=== PATIENT | female | born 1970 | race Caucasian/White ===

== ENCOUNTER 2018-08-09 16:52 | Inpatient (IN) | payer MEDICAID ==
[~2018-08-09] VITALS: Ht 167.6 cm; Wt 90.7 kg
[2018-08-09] MEDS ORDERED: ALBUTEROL (0.083%) 2.5MG/3ML NEB HHN STA (19:50)
[2018-08-09] MEDS ORDERED: SODIUM CHLORIDE 0.9% 1,000 ML IV ONE ×2 (19:50→20:39)
[2018-08-09 20:17] LABS: BASOPHILS % 0.2 % (0.0-2.0); HEMATOCRIT. 25.9 % (36.0-48.0); HEMOGLOBIN. 8.6 g/dL (12.0-16.0); MEAN CORPUSCULAR HEMOGLOBIN 29.9 pg (28.0-32.0); MEAN CORPUSCULAR VOLUME 90.5 fL (81.0-99.0); MEAN PLATELET VOLUME 10.1 fl (7.4-10.4); MONOCYTES % 5.4 % (2.0-8.0); NEUTROPHILS % 82.4 % (40.0-76.0); PLATELET 192 x1000/uL (130-400); RED BLOOD CELL COUNT 2.87 mill/uL (4.2-5.4); RED CELL DISTRIBUTION WIDTH 14.1 % (11.6-14.6)
[2018-08-09 20:24] LABS: CHLORIDE 107 mEq/L (98-107); CLARITY URINE CLOUDY (CLEAR); COLOR URINE YELLOW (YELLOW); KETONES URINE NEGATIVE (NEGATIVE); LEUKOCYTE ESTERASE URINE NEGATIVE (NEGATIVE); NITRITE URINE NEGATIVE (NEGATIVE); OCCULT BLOOD URINE 2+ (NEGATIVE); PH URINE 5.5 (4.5-8.0); PROTEIN URINE 4+ (NEGATIVE); SPECIFIC GRAVITY URINE 1.023 (1.005-1.030); UROBILINOGEN URINE 0.2 E.U./dL (0.2-1.0)
[2018-08-09] MEDS ORDERED: ACETAMINOPHEN 325MG TABLET PO ONE (20:30)
[2018-08-09 20:54] LABS: HCG SCREEN NEGATIVE
[2018-08-09] MEDS ORDERED: CEFTRIAXONE 2 G PREMIX 50 ML IV ONE (21:00)
[2018-08-09] MEDS ORDERED: AZITHROMYCIN 500 MG in DEXT 5% WATER 250 ML IV ONE (21:00)
[2018-08-09] MEDS ORDERED: OSELTAMIVIR 75MG CAPSULE PO ONE (21:00)
[2018-08-09 21:56] LABS: PROTHROMBIN TIME 9.9 sec (9.1-11.1)
[2018-08-09] MEDS ORDERED: SODIUM CHLORIDE 0.9% 1,000 ML IV SCH (23:07)
[2018-08-09] MEDS ORDERED: ACETAMINOPHEN 325MG TABLET PO PRN (23:15)
[2018-08-09] MEDS ORDERED: DOCUSATE SODIUM 100MG CAPSULE PO PRN (23:15)
[2018-08-09] MEDS ORDERED: ONDANSETRON HCL 4MG/2ML INJ IV PRN (23:15)
[2018-08-09] MEDS ORDERED: CLONIDINE 0.1MG TABLET PO PRN (23:15)
[2018-08-09] MEDS ORDERED: IPRATROPIUM/ALBUTEROL 0.5-3(2.5)MG/3ML NEB INH PRN (23:15)
[2018-08-09] MEDS ORDERED: HYDROCODONE/ACETAMINOPHEN 5/325MG TABLET PO PRN (23:15)
[2018-08-10 06:50] LABS: BASOPHILS % 0.3 % (0.0-2.0); HEMATOCRIT. 23.1 % (36.0-48.0); HEMOGLOBIN. 7.9 g/dL (12.0-16.0); LYMPHOCYTES % 19.9 % (20.0-50.0); MEAN CORPUSCULAR HEMOGLOBIN 30.8 pg (28.0-32.0); MEAN CORPUSCULAR VOLUME 89.9 fL (81.0-99.0); MEAN PLATELET VOLUME 10.7 fl (7.4-10.4); MONOCYTES % 5.7 % (2.0-8.0); NEUTROPHILS % 74.1 % (40.0-76.0); PLATELET 171 x1000/uL (130-400); RED BLOOD CELL COUNT 2.57 mill/uL (4.2-5.4); RED CELL DISTRIBUTION WIDTH 14.1 % (11.6-14.6)
[2018-08-10 07:06] LABS: CREATINE KINASE MB FRACTION 4.3 ng/mL (0.5-3.6)
[2018-08-10] MEDS ORDERED: OSELTAMIVIR 75MG CAPSULE PO SCH (09:00)
[2018-08-10 09:15] VITALS: BP 146/74
[2018-08-10 09:18] LABS: BG BASE EXCESS -7.2 mmol/L (-2.0-2.0); BG CARBOXYHEMOGLOBIN 0.1 % (0.5-1.5); BG DEOXYHEMOGLOBIN 5.9 % (0.0-5.0); BG FRACTION INSPIRED OXYGEN 21; BG HCO3 ACT 17.3 mmol/L (22.0-26.0); BG METHEMOGLOBIN 0.3 % (0.0-1.5); BG OXYGEN SATURATION 94.1 % (92.0-98.5); BG OXYHEMOGLOBIN 93.7 % (94.0-97.0); BG PCO2 30.8 mmHg (35.0-45.0); BG PH 7.367 (7.350-7.450); BG PO2 73.6 mmHg (75.0-100.0); BG SAMPLE SITE RIGHT BRACHIAL; BG TOTAL HEMOGLOBIN 7.8 g/dL (12.0-18.0); BG VENT MODE ROOM AIR
[2018-08-10 09:30] VITALS: BP 146/74
[2018-08-10] MEDS ORDERED: SODIUM POLYSTYRENE SULFONATE 15 G/60 ML BOT PO NR (11:00)
[2018-08-10 12:00] VITALS: BP 147/72
[2018-08-10] MEDS: OSELTAMIVIR 30MG CAPSULE PO SCH (12:19)
[2018-08-10] MEDS: AZITHROMYCIN 500 MG TABLET PO SCH (12:19)
[2018-08-10] MEDS: SODIUM CHLORIDE 0.45% 1,000 ML IV SCH ×3 (12:36→21:29)
[2018-08-10] MEDS: HYDRALAZINE HCL 10MG TABLET PO SCH ×2 (14:35→21:24)
[2018-08-10] MEDS: AMLODIPINE 5MG TABLET PO SCH ×2 (14:36→21:24)
[2018-08-10 15:44] LABS: CREATINE KINASE MB FRACTION 5.6 ng/mL (0.5-3.6)
[2018-08-10 16:00] VITALS: BP 172/82
[2018-08-10] MEDS ORDERED: THROAT LOZENGES-BENZOCAINE/MENTH/CETYLPYRD CL LOZENGES MM PRN (18:30)
[2018-08-10 20:00] VITALS: BP 161/78
[2018-08-10] MEDS: GUAIFENESIN 600MG ER TABLET PO SCH (21:23)
[2018-08-10] MEDS: CEFTRIAXONE 1 G PREMIX 50 ML IV SCH (21:28)
[2018-08-10] MEDS ORDERED: CEFTRIAXONE 1 G PREMIX 50 ML IV SCH (22:00)
[2018-08-11] VITALS: BP 148/64
[2018-08-11 04:00] VITALS: BP 153/68
[2018-08-11] MEDS: SODIUM CHLORIDE 0.45% 1,000 ML IV SCH ×2 (05:10→18:41)
[2018-08-11] MEDS: HYDRALAZINE HCL 10MG TABLET PO SCH (05:10)
[2018-08-11 08:00] VITALS: BP 138/65
[2018-08-11 09:06] LABS: ANTI-NUCLEAR ANTIBODIES DIRECT Negative (Negative)
[2018-08-11] MEDS: AMLODIPINE 5MG TABLET PO SCH ×2 (09:08→21:16)
[2018-08-11] MEDS: GUAIFENESIN 600MG ER TABLET PO SCH ×2 (09:08→21:16)
[2018-08-11] MEDS: AZITHROMYCIN 500 MG TABLET PO SCH (09:08)
[2018-08-11 09:46] LABS: HEMATOCRIT. 21.6 % (36.0-48.0); HEMOGLOBIN. 7.2 g/dL (12.0-16.0); MEAN CORPUSCULAR HEMOGLOBIN 30.3 pg (28.0-32.0); MEAN CORPUSCULAR VOLUME 90.6 fL (81.0-99.0); MEAN PLATELET VOLUME 9.9 fl (7.4-10.4); PLATELET 169 x1000/uL (130-400); RED BLOOD CELL COUNT 2.39 mill/uL (4.2-5.4); RED CELL DISTRIBUTION WIDTH 13.9 % (11.6-14.6)
[2018-08-11] MEDS ORDERED: DEXTROSE 50% WATER 50ML SYRINGE IV PRN (11:30)
[2018-08-11 12:00] VITALS: BP 146/76
[2018-08-11] MEDS: INSULIN LISPRO 100 UNITS/ML SUBCUT SCH ×3 (12:15→21:35)
[2018-08-11] MEDS: BLOOD SUGAR DIAGNOSTIC STRIP TEST SCH ×3 (12:32→21:16)
[2018-08-11] MEDS: OSELTAMIVIR 30MG CAPSULE PO SCH (12:49)
[2018-08-11] MEDS: HYDRALAZINE HCL 25MG TABLET PO SCH ×2 (14:31→21:16)
[2018-08-11 15:09] LABS: PLATELET ESTIMATE NORMAL
[2018-08-11 16:00] VITALS: BP 148/74
[2018-08-11 17:06] LABS: A/G RATIO 0.7 (0.7-1.7); ALBUMIN 2.1 g/dL (2.9-4.4); ALPHA-1-GLOBULIN 0.4 g/dL (0.0-0.4); ALPHA-2-GLOBULIN 0.9 g/dL (0.4-1.0); BETA GLOBULIN 0.7 g/dL (0.7-1.3); GAMMA GLOBULINS 1.2 g/dL (0.4-1.8); GLOBULIN TOTAL 3.2 g/dL (2.2-3.9); M-SPIKE Not Observed g/dL (Not Observed); TOTAL PROTEIN SERUM 5.3 g/dL (6.0-8.5)
[2018-08-11] MEDS: CITRIC ACID/SODIUM CITRATE SOLN 30ML UDC PO SCH (18:39)
[2018-08-11 20:00] VITALS: BP 161/84
[2018-08-11] MEDS: CEFTRIAXONE 1 G PREMIX 50 ML IV SCH (21:16)
[2018-08-12] VITALS: BP 159/70
[2018-08-12 04:00] VITALS: BP 138/57
[2018-08-12 05:29] LABS: COMPLEMENT C3 97 mg/dL (82-167)
[2018-08-12] MEDS: BLOOD SUGAR DIAGNOSTIC STRIP TEST SCH ×4 (06:26→20:03)
[2018-08-12] MEDS: SODIUM CHLORIDE 0.45% 1,000 ML IV SCH ×2 (06:26→16:17)
[2018-08-12] MEDS: HYDRALAZINE HCL 25MG TABLET PO SCH ×3 (06:26→21:01)
[2018-08-12] MEDS: PANTOPRAZOLE 40MG DR TABLET PO SCH (06:26)
[2018-08-12] MEDS: INSULIN LISPRO 100 UNITS/ML SUBCUT SCH ×4 (06:54→21:03)
[2018-08-12 07:24] LABS: BASOPHILS % 0.4 % (0.0-2.0); EOSINOPHILS % 0.5 % (0.0-5.0); HEMOGLOBIN. 8.1 g/dL (12.0-16.0); MEAN CORPUSCULAR HEMOGLOBIN 31.4 pg (28.0-32.0); MEAN CORPUSCULAR VOLUME 88.8 fL (81.0-99.0); MEAN PLATELET VOLUME 10.2 fl (7.4-10.4); MONOCYTES % 6.2 % (2.0-8.0); NEUTROPHILS % 61.9 % (40.0-76.0); PLATELET 211 x1000/uL (130-400); RED BLOOD CELL COUNT 2.59 mill/uL (4.2-5.4); RED CELL DISTRIBUTION WIDTH 13.5 % (11.6-14.6)
[2018-08-12 08:00] VITALS: BP 163/77
[2018-08-12] MEDS: AZITHROMYCIN 500 MG TABLET PO SCH (08:38)
[2018-08-12] MEDS: AMLODIPINE 5MG TABLET PO SCH ×2 (08:38→21:01)
[2018-08-12] MEDS: OSELTAMIVIR 30MG CAPSULE PO SCH (08:38)
[2018-08-12] MEDS: CITRIC ACID/SODIUM CITRATE SOLN 30ML UDC PO SCH ×3 (08:38→16:18)
[2018-08-12] MEDS: GUAIFENESIN 600MG ER TABLET PO SCH ×2 (08:38→21:01)
[2018-08-12 08:52] LABS: VITAMIN B12 SERUM > 2000.0 pg/mL (211-911)
[2018-08-12 12:00] VITALS: BP 144/72
[2018-08-12 15:24] LABS: CREATININE URINE (RAW) 86.2 mg/dl
[2018-08-12 16:00] VITALS: BP 139/67
[2018-08-12] MEDS ORDERED: LORAZEPAM 0.5MG TABLET PO PRN (17:45)
[2018-08-12 20:00] VITALS: BP 157/64
[2018-08-12] MEDS: CEFTRIAXONE 1 G PREMIX 50 ML IV SCH (21:00)
[2018-08-13] VITALS: BP 144/76
[2018-08-13 04:00] VITALS: BP 143/64
[2018-08-13] MEDS: BLOOD SUGAR DIAGNOSTIC STRIP TEST SCH ×2 (05:58→11:45)
[2018-08-13] MEDS: PANTOPRAZOLE 40MG DR TABLET PO SCH (06:02)
[2018-08-13] MEDS: HYDRALAZINE HCL 25MG TABLET PO SCH (06:02)
[2018-08-13] MEDS: INSULIN LISPRO 100 UNITS/ML SUBCUT SCH (06:02)
[2018-08-13 07:02] LABS: BASOPHILS % 0.4 % (0.0-2.0); EOSINOPHILS % 1.7 % (0.0-5.0); HEMATOCRIT. 22.6 % (36.0-48.0); HEMOGLOBIN. 7.7 g/dL (12.0-16.0); LYMPHOCYTES % 38.3 % (20.0-50.0); MEAN CORPUSCULAR HEMOGLOBIN 30.1 pg (28.0-32.0); MEAN CORPUSCULAR VOLUME 88.5 fL (81.0-99.0); MONOCYTES % 6.9 % (2.0-8.0); NEUTROPHILS % 52.7 % (40.0-76.0); PLATELET 250 x1000/uL (130-400); RED BLOOD CELL COUNT 2.56 mill/uL (4.2-5.4); RED CELL DISTRIBUTION WIDTH 13.3 % (11.6-14.6)
[2018-08-13 07:36] LABS: HEPATITIS B SURFACE ANTIGEN NEGATIVE
[2018-08-13 08:00] VITALS: BP 148/76
[2018-08-13] MEDS: CITRIC ACID/SODIUM CITRATE SOLN 30ML UDC PO SCH (08:32)
[2018-08-13] MEDS: AZITHROMYCIN 500 MG TABLET PO SCH (09:29)
[2018-08-13] MEDS: OSELTAMIVIR 30MG CAPSULE PO SCH (09:29)
[2018-08-13] MEDS: GUAIFENESIN 600MG ER TABLET PO SCH (09:29)
[2018-08-13] MEDS: AMLODIPINE 5MG TABLET PO SCH (09:41)
[2018-08-13 11:52] VITALS: BP 148/76
[2018-08-15 13:06] LABS: HIV SCREEN 4G Non Reactive (Non Reactive)
[2018-08-15 15:10] LABS: ANTI-MYELOPEROXIDASE AB < 9.0 U/mL (0.0-9.0); ANTI-PROTEINASE 3 ABS < 3.5 U/mL (0.0-3.5)
[2018-08-22 15:10] LABS: ATYPICAL P-ANCA <1:20 titer (Neg:<1:20); CYTOPLASMIC C-ANCA <1:20 titer (Neg:<1:20); PERINUCLEAR P-ANCA <1:20 titer (Neg:<1:20)
== END 2018-08-13 12:20 | disposition home or self-care (01) | DRG 469 ==
LOC: ER 16:52 → 5WST 21:24 → ENRESERV 08-10 07:33 → 5WST 08-10 09:40
PROVIDERS: ADMIT Internal Medicine; ATTEND Internal Medicine
DX: N17.9 Acute kidney failure, unspecified (principal); J96.00 Acute respiratory failure, unspecified whether with hypoxia or hypercapnia; J10.00 Influenza due to other identified influenza virus with unspecified type of pneumonia; I11.0 Hypertensive heart disease with heart failure; R65.10 Systemic inflammatory response syndrome (SIRS) of non-infectious origin without acute organ dysfunction; Z93.0 Tracheostomy status; I50.32 Chronic diastolic (congestive) heart failure; E87.5 Hyperkalemia; D50.9 Iron deficiency anemia, unspecified; E10.9 Type 1 diabetes mellitus without complications; N39.0 Urinary tract infection, site not specified; E86.9 Volume depletion, unspecified; E78.00 Pure hypercholesterolemia, unspecified; K04.7 Periapical abscess without sinus; E78.5 Hyperlipidemia, unspecified; F17.210 Nicotine dependence, cigarettes, uncomplicated; H54.7 Unspecified visual loss; J44.0 Chronic obstructive pulmonary disease with (acute) lower respiratory infection; K80.20 Calculus of gallbladder without cholecystitis without obstruction; Z79.4 Long term (current) use of insulin; Z82.49 Family history of ischemic heart disease and other diseases of the circulatory system; Z83.3 Family history of diabetes mellitus; Z91.14 Patient's other noncompliance with medication regimen; Z91.15 Patient's noncompliance with renal dialysis
CPT/HCPCS: 36415; 36600; 71045; 76770; 80048; 80061; 82270; 82375; 82550; 82553; 82570; 82575; 82607; 82728; 82746; 82805; 82962; 83036; 83520; 83540; 83550; 83605; 83735; 83880; 84132; 84145; 84155; 84156; 84165; 84443; 84484; 84703; 85044; 86038; 86160; 86256; 86803; 86850; 86900; 87070; 87340; 87389; 87804; 93005; 93306; 93970; 94640; 96361; 96365; 96366; 96368; 99291; J0456; J0696; J1815; J7030; J7060; J7611

== ENCOUNTER 2018-10-12 18:41 | Inpatient (IN) | payer MEDICAID ==
[~2018-10-12] VITALS: Ht 160 cm; Wt 98.4 kg
[2018-10-12 23:41] LABS: BASOPHILS % 1.2 % (0.0-2.0); EOSINOPHILS % 2.2 % (0.0-5.0); HEMATOCRIT. 22.9 % (36.0-48.0); HEMOGLOBIN. 7.5 g/dL (12.0-16.0); LYMPHOCYTES % 31.4 % (20.0-50.0); MEAN CORPUSCULAR VOLUME 91.1 fL (81.0-99.0); MEAN PLATELET VOLUME 10.4 fl (7.4-10.4); MONOCYTES % 7.5 % (2.0-8.0); NEUTROPHILS % 57.7 % (40.0-76.0); PLATELET 254 x1000/uL (130-400); RED BLOOD CELL COUNT 2.51 mill/uL (4.2-5.4); RED CELL DISTRIBUTION WIDTH 14.6 % (11.6-14.6)
[2018-10-12 23:45] LABS: CHLORIDE 111 mEq/L (98-107)
[2018-10-12 23:47] LABS: PROTHROMBIN TIME 10.2 sec (9.1-11.1)
[2018-10-12] MEDS ORDERED: FUROSEMIDE 100MG/10ML VIAL IV NR (23:57)
[2018-10-13] MEDS ORDERED: CALCIUM CHLORIDE 1GM/10ML SYR IV NR
[2018-10-13] MEDS ORDERED: DEXTROSE 50% WATER 50ML SYRINGE IV NR
[2018-10-13] MEDS ORDERED: INSULIN REGULAR (HUMULIN R) 300UNITS/3ML IV NR
[2018-10-13] MEDS ORDERED: SODIUM BICARBONATE 8.4% 1 MEQ/ML 50ML SYR IV NR
[2018-10-13 00:11] LABS: CLARITY URINE CLOUDY (CLEAR); COLOR URINE YELLOW (YELLOW); KETONES URINE NEGATIVE (NEGATIVE); LEUKOCYTE ESTERASE URINE NEGATIVE (NEGATIVE); NITRITE URINE NEGATIVE (NEGATIVE); OCCULT BLOOD URINE 2+ (NEGATIVE); PH URINE 5.5 (4.5-8.0); PROTEIN URINE 4+ (NEGATIVE); SPECIFIC GRAVITY URINE 1.022 (1.005-1.030); UROBILINOGEN URINE 0.2 E.U./dL (0.2-1.0)
[2018-10-13] MEDS ORDERED: HYDRALAZINE 20MG/ML VIAL IV ONE (12:15)
[2018-10-13 14:47] VITALS: BP 155/71
[2018-10-13] MEDS ORDERED: INFLUENZA VIRUS VACCINE(AFLURIA) 0.5ML SYR IM ONE (16:00)
[2018-10-13] MEDS ORDERED: ONDANSETRON HCL 4MG/2ML INJ IV PRN (16:15)
[2018-10-13] MEDS ORDERED: PNEUMOCOCCAL 23-VAL P-SAC VAC 0.5 ML IM ONE (17:00)
[2018-10-13] MEDS ORDERED: ACETAMINOPHEN 325MG TABLET PO PRN (18:45)
[2018-10-13] MEDS ORDERED: IPRATROPIUM/ALBUTEROL 0.5-3(2.5)MG/3ML NEB INH PRN (18:45)
[2018-10-13 20:00] VITALS: BP 162/74
[2018-10-13] MEDS ORDERED: CLONIDINE 0.1MG TABLET PO PRN (20:45)
[2018-10-13] MEDS: AMLODIPINE 5MG TABLET PO SCH (21:08)
[2018-10-14] VITALS: BP 159/73
[2018-10-14 04:00] VITALS: BP 155/74
[2018-10-14] MEDS ORDERED: DEXTROSE 50% WATER 50ML SYRINGE IV PRN (05:15)
[2018-10-14] MEDS: BLOOD SUGAR DIAGNOSTIC STRIP TEST SCH ×3 (07:40→21:23)
[2018-10-14] MEDS: INSULIN LISPRO 100 UNITS/ML SUBCUT SCH ×3 (07:53→21:00)
[2018-10-14 08:00] VITALS: BP 126/58
[2018-10-14 08:02] LABS: BASOPHILS % 1.1 % (0.0-2.0); EOSINOPHILS % 2.5 % (0.0-5.0); HEMATOCRIT. 22.4 % (36.0-48.0); HEMOGLOBIN. 7.3 g/dL (12.0-16.0); LYMPHOCYTES % 34.6 % (20.0-50.0); MEAN CORPUSCULAR HEMOGLOBIN 29.7 pg (28.0-32.0); MEAN CORPUSCULAR VOLUME 91.5 fL (81.0-99.0); MEAN PLATELET VOLUME 10.2 fl (7.4-10.4); MONOCYTES % 8.8 % (2.0-8.0); PLATELET 266 x1000/uL (130-400); RED BLOOD CELL COUNT 2.45 mill/uL (4.2-5.4); RED CELL DISTRIBUTION WIDTH 14.4 % (11.6-14.6)
[2018-10-14] MEDS: AMLODIPINE 5MG TABLET PO SCH ×2 (09:13→21:22)
[2018-10-14 12:00] VITALS: BP 128/61
[2018-10-14] MEDS ORDERED: SODIUM BICARBONATE 8.4% 1 MEQ/ML 50ML SYR IV ONE (12:30)
[2018-10-14] MEDS ORDERED: SODIUM POLYSTYRENE SULFONATE 15 G/60 ML BOT PO ONE (12:30)
[2018-10-14] MEDS ORDERED: INSULIN REGULAR (HUMULIN R) 300UNITS/3ML IV ONE (12:30)
[2018-10-14] MEDS ORDERED: DEXTROSE 50% WATER 50ML SYRINGE IV ONE (12:30)
[2018-10-14] MEDS ORDERED: CALCIUM CHLORIDE 1,000 MG in DEXT 5% WATER 90 ML IV SCH (12:30)
[2018-10-14] MEDS ORDERED: INSULIN REGULAR (HUMULIN R) UD 100 UNITS/ML SYR IV SCH (12:45)
[2018-10-14 15:07] LABS: PHOSPHORUS 8.1 mg/dL (2.5-4.9)
[2018-10-14 16:08] VITALS: BP 135/67
[2018-10-14 20:00] VITALS: BP 141/54
[2018-10-15] VITALS: BP 142/67
[2018-10-15 04:00] VITALS: BP 128/74
[2018-10-15 06:41] LABS: PHOSPHORUS 7.9 mg/dL (2.5-4.9)
[2018-10-15 07:34] LABS: BASOPHILS % 0.4 % (0.0-2.0); EOSINOPHILS % 2.7 % (0.0-5.0); LYMPHOCYTES % 30.2 % (20.0-50.0); MEAN CORPUSCULAR HEMOGLOBIN 29.7 pg (28.0-32.0); MEAN CORPUSCULAR VOLUME 89.6 fL (81.0-99.0); MEAN PLATELET VOLUME 10.2 fl (7.4-10.4); MONOCYTES % 8.1 % (2.0-8.0); NEUTROPHILS % 58.6 % (40.0-76.0); PLATELET 263 x1000/uL (130-400); RED BLOOD CELL COUNT 2.31 mill/uL (4.2-5.4); RED CELL DISTRIBUTION WIDTH 14.7 % (11.6-14.6)
[2018-10-15] MEDS: BLOOD SUGAR DIAGNOSTIC STRIP TEST SCH ×4 (07:40→21:11)
[2018-10-15 08:00] VITALS: BP 130/66
[2018-10-15 08:06] LABS: HEMATOCRIT. 20.7 % (36.0-48.0); HEMOGLOBIN. 6.8 g/dL (12.0-16.0)
[2018-10-15] MEDS: INSULIN LISPRO 100 UNITS/ML SUBCUT SCH ×4 (08:10→21:00)
[2018-10-15] MEDS: AMLODIPINE 5MG TABLET PO SCH ×2 (08:27→21:11)
[2018-10-15] MEDS ORDERED: SODIUM POLYSTYRENE SULFONATE 15 G/60 ML BOT PO SCH (10:00)
[2018-10-15] MEDS: CITRIC ACID/SODIUM CITRATE SOLN 30ML UDC PO SCH ×3 (10:48→18:01)
[2018-10-15 12:00] VITALS: BP 131/66
[2018-10-15 16:00] VITALS: BP 147/62
[2018-10-15 20:00] VITALS: BP 146/66
[2018-10-15] MEDS ORDERED: EPOETIN ALFA 10000UNITS/ML VIAL SUBCUT SCH (21:00)
[2018-10-16] VITALS (8 sets, daily range): BP systolic 114–143; BP diastolic 41–81
[2018-10-16] MEDS: BLOOD SUGAR DIAGNOSTIC STRIP TEST SCH ×4 (06:47→21:18)
[2018-10-16] MEDS: INSULIN LISPRO 100 UNITS/ML SUBCUT SCH ×4 (08:10→21:00)
[2018-10-16] MEDS: AMLODIPINE 5MG TABLET PO SCH ×2 (08:29→21:27)
[2018-10-16] MEDS: CITRIC ACID/SODIUM CITRATE SOLN 30ML UDC PO SCH ×3 (08:29→17:24)
[2018-10-16 10:29] LABS: BASOPHILS % 0.8 % (0.0-2.0); EOSINOPHILS % 1.8 % (0.0-5.0); LYMPHOCYTES % 36.8 % (20.0-50.0); MEAN CORPUSCULAR HEMOGLOBIN 30.4 pg (28.0-32.0); MEAN CORPUSCULAR VOLUME 89.9 fL (81.0-99.0); MEAN PLATELET VOLUME 9.9 fl (7.4-10.4); MONOCYTES % 9.5 % (2.0-8.0); NEUTROPHILS % 51.1 % (40.0-76.0); PLATELET 254 x1000/uL (130-400); RED BLOOD CELL COUNT 2.21 mill/uL (4.2-5.4); RED CELL DISTRIBUTION WIDTH 14.2 % (11.6-14.6)
[2018-10-16 10:49] LABS: HEMATOCRIT. 19.9 % (36.0-48.0); HEMOGLOBIN. 6.7 g/dL (12.0-16.0)
[2018-10-16 12:23] LABS: HEPATITIS B SURFACE ANTIGEN NEGATIVE
[2018-10-16 12:52] LABS: HEPATITIS A AB IGM NEGATIVE (NEGATIVE)
[2018-10-16] MEDS: ONDANSETRON HCL 4MG/2ML INJ IV PRN ×2 (18:55→23:33)
[2018-10-16 20:57] LABS: HEMATOCRIT 22.2 % (36.0-48.0); HEMOGLOBIN 7.6 g/dL (12.0-16.0); MEAN CORPUSCULAR HEMOGLOBIN 30.1 pg (28.0-32.0); MEAN CORPUSCULAR VOLUME 88.2 fL (81.0-99.0); PLATELET 258 x1000/uL (130-400); RED BLOOD CELL COUNT 2.52 mill/uL (4.2-5.4); RED CELL DISTRIBUTION WIDTH 14.3 % (11.6-14.6)
[2018-10-17] VITALS (18 sets, daily range): BP systolic 121–163; BP diastolic 57–84
[2018-10-17 05:52] LABS: BASOPHILS % 1.1 % (0.0-2.0); EOSINOPHILS % 2.4 % (0.0-5.0); HEMATOCRIT. 22.5 % (36.0-48.0); HEMOGLOBIN. 7.5 g/dL (12.0-16.0); MEAN CORPUSCULAR HEMOGLOBIN 30.1 pg (28.0-32.0); MEAN CORPUSCULAR VOLUME 90.3 fL (81.0-99.0); NEUTROPHILS % 45.5 % (40.0-76.0); PLATELET 265 x1000/uL (130-400); RED CELL DISTRIBUTION WIDTH 14.7 % (11.6-14.6)
[2018-10-17 05:57] LABS: PARTIAL THROMBOPLASTIN TIME 28.3 sec (23.4-31.0); PROTHROMBIN TIME 10.3 sec (9.1-11.1)
[2018-10-17] MEDS: BLOOD SUGAR DIAGNOSTIC STRIP TEST SCH ×4 (07:23→21:18)
[2018-10-17] MEDS: INSULIN LISPRO 100 UNITS/ML SUBCUT SCH ×4 (07:46→21:27)
[2018-10-17] MEDS: AMLODIPINE 5MG TABLET PO SCH ×2 (09:00→21:26)
[2018-10-17] MEDS ORDERED: CEFAZOLIN 1000MG PREMIX 50 ML IV PRN (09:00)
[2018-10-17] MEDS: CITRIC ACID/SODIUM CITRATE SOLN 30ML UDC PO SCH ×3 (09:00→16:57)
[2018-10-17] MEDS ORDERED: LIDOCAINE HCL 1% 20ML VIAL (Pyxis) INJ ONE (09:14)
[2018-10-17] MEDS ORDERED: SODIUM BICARBONATE 4% (2.4MEQ) 5ML VIAL IV ONE (09:14)
[2018-10-17] MEDS ORDERED: HEPARIN 1000 UNITS/ML 10ML ONE (09:15)
[2018-10-17] MEDS ORDERED: CEFAZOLIN 1000MG PREMIX 50 ML IV ONE (09:17)
[2018-10-17] MEDS ORDERED: FENTANYL CITRATE/PF 50MCG/ML 2ML VIAL ONE (09:17)
[2018-10-17 09:31] LABS: HCG SCREEN NEGATIVE
[2018-10-17] MEDS ORDERED: FENTANYL CITRATE/PF 50MCG/ML 2ML VIAL IV ONE (11:00)
[2018-10-17] MEDS: HYDROCODONE/ACETAMINOPHEN 5/325MG TABLET PO PRN ×2 (12:44→21:30)
[2018-10-18] VITALS: BP 109/67
[2018-10-18 04:00] VITALS: BP 120/52
[2018-10-18] MEDS: ONDANSETRON HCL 4MG/2ML INJ IV PRN ×2 (05:17→14:29)
[2018-10-18] MEDS: BLOOD SUGAR DIAGNOSTIC STRIP TEST SCH ×2 (06:44→13:03)
[2018-10-18 08:00] VITALS: BP 153/77
[2018-10-18] MEDS: INSULIN LISPRO 100 UNITS/ML SUBCUT SCH ×2 (08:10→13:10)
[2018-10-18] MEDS: HYDROCODONE/ACETAMINOPHEN 5/325MG TABLET PO PRN (08:24)
[2018-10-18] MEDS: AMLODIPINE 5MG TABLET PO SCH (08:24)
[2018-10-18] MEDS: CITRIC ACID/SODIUM CITRATE SOLN 30ML UDC PO SCH (08:30)
[2018-10-18] MEDS ORDERED: PIPERACILLIN/TAZ 2.25G PREMIX 50 ML IV SCH (10:00)
[2018-10-18] MEDS ORDERED: VANCOMYCIN 2,000 MG in DEXT 5% WATER 500 ML IV SCH (11:00)
[2018-10-18 12:00] VITALS: BP 124/67
[2018-10-18] MEDS ORDERED: DIPHENHYDRAMINE 50MG/ML VIAL IV NR (13:30)
[2018-10-18 19:35] VITALS: BP 148/65
== END 2018-10-18 20:05 | disposition home or self-care (01) | DRG 470 ==
LOC: ER 18:41 → 7WST 10-13 00:06 → ENRESERV 10-13 11:16 → 7WST 10-13 14:55
PROVIDERS: ADMIT Internal Medicine; ATTEND Internal Medicine
PROC: 30233N1 Transfusion of Nonautologous Red Blood Cells into Peripheral Vein, Percutaneous Approach (ICD-10-PCS; 2018-10-16)
PROC: 5A1D70Z Performance of Urinary Filtration, Intermittent, Less than 6 Hours Per Day (ICD-10-PCS; principal; 2018-10-17)
PROC: 0JH63XZ Insertion of Tunneled Vascular Access Device into Chest Subcutaneous Tissue and Fascia, Percutaneous Approach (ICD-10-PCS; 2018-10-17)
PROC: 02HV33Z Insertion of Infusion Device into Superior Vena Cava, Percutaneous Approach (ICD-10-PCS; 2018-10-17)
PROC: B5181ZA Fluoroscopy of Superior Vena Cava using Low Osmolar Contrast, Guidance (ICD-10-PCS; 2018-10-17)
PROC: B548ZZA Ultrasonography of Superior Vena Cava, Guidance (ICD-10-PCS; 2018-10-17)
PROC: 5A1D70Z Performance of Urinary Filtration, Intermittent, Less than 6 Hours Per Day (ICD-10-PCS; 2018-10-18)
DX: I12.0 Hypertensive chronic kidney disease with stage 5 chronic kidney disease or end stage renal disease (principal); N17.9 Acute kidney failure, unspecified; E10.22 Type 1 diabetes mellitus with diabetic chronic kidney disease; E87.5 Hyperkalemia; N18.6 End stage renal disease; Z79.4 Long term (current) use of insulin; L03.90 Cellulitis, unspecified; N39.0 Urinary tract infection, site not specified; I25.10 Atherosclerotic heart disease of native coronary artery without angina pectoris; H54.61 Unqualified visual loss, right eye, normal vision left eye; D63.8 Anemia in other chronic diseases classified elsewhere; Z66 Do not resuscitate; I80.8 Phlebitis and thrombophlebitis of other sites; Z91.19 Patient's noncompliance with other medical treatment and regimen; Z91.15 Patient's noncompliance with renal dialysis; Z90.49 Acquired absence of other specified parts of digestive tract
CPT/HCPCS: 36415; 36558; 71045; 77001; 80048; 82962; 83735; 84100; 84132; 84703; 85027; 86705; 86706; 86709; 86803; 86850; 86900; 86920; 87340; 90686; 90732; 96374; 96375; 99285; C1750; J0360; J0690; J0885; J1200; J1642; J1644; J1815; J1940; J2405; J2543; J3010; J3370; J3490; J7050; J7060; P9016

== ENCOUNTER 2019-03-06 17:45 | Emergency (ER) | payer MEDICAID ==
[~2019-03-06] VITALS: Ht 165.1 cm; Wt 79.0 kg
[~2019-03-06 17:45] MED LIST: LEVO500T2 PO; LISI-604 PO; NIFE60TA64 PO
[2019-03-06 19:39] LABS: BASOPHILS % 1.2 % (0.0-2.0); EOSINOPHILS % 2.2 % (0.0-5.0); HEMATOCRIT. 31.7 % (36.0-48.0); HEMOGLOBIN. 10.6 g/dL (12.0-16.0); LYMPHOCYTES % 19.1 % (20.0-50.0); MEAN CORPUSCULAR HEMOGLOBIN 31.4 pg (28.0-32.0); MEAN CORPUSCULAR VOLUME 93.6 fL (81.0-99.0); MEAN PLATELET VOLUME 10.1 fl (7.4-10.4); NEUTROPHILS % 70.5 % (40.0-76.0); PLATELET 227 x1000/uL (130-400); RED BLOOD CELL COUNT 3.38 mill/uL (4.2-5.4); RED CELL DISTRIBUTION WIDTH 16.8 % (11.6-14.6)
[2019-03-06 19:40] VITALS: BP 162/74
[2019-03-06 19:40] LABS: PARTIAL THROMBOPLASTIN TIME 26.4 sec (23.4-31.0); PROTHROMBIN TIME 10.5 sec (9.6-11.0)
[2019-03-06 19:42] LABS: CHLORIDE 97 mEq/L (98-107)
[2019-03-06 19:49] LABS: HCG SCREEN NEGATIVE
== END 2019-03-06 22:34 | disposition left against medical advice (07) ==
LOC: ER 17:45 → EDBEDREQ 20:57 → EDBEDREQTM 20:57 → CANRESERV 21:34 → ENRESERV 21:34 → CANBEDREQ 21:44 → ER 22:34
DX: E87.79 Other fluid overload (principal); R00.0 Tachycardia, unspecified; I12.0 Hypertensive chronic kidney disease with stage 5 chronic kidney disease or end stage renal disease; N18.6 End stage renal disease; Z91.15 Patient's noncompliance with renal dialysis; J90 Pleural effusion, not elsewhere classified; E11.22 Type 2 diabetes mellitus with diabetic chronic kidney disease; Z99.2 Dependence on renal dialysis
CPT/HCPCS: 36415; 71045; 84484; 84703; 93005; 99284

== ENCOUNTER 2019-08-28 11:38 | Inpatient (IN) | payer MEDICAID, OTHER ==
[~2019-08-28] VITALS: Ht 167.6 cm; Wt 93.4 kg
[~2019-08-28 11:38] MED LIST changes: +NIFE-32 PO; -NIFE60TA64 PO
[2019-08-28] MEDS ORDERED: MORPHINE SULFATE 4 MG/ML CPJ (NOT FOR IM USE) IV STA (12:28)
[2019-08-28] MEDS ORDERED: ONDANSETRON HCL 4MG/2ML INJ IV STA (12:28)
[2019-08-28 13:57] LABS: BASOPHILS % 1.5 % (0.0-2.0); EOSINOPHILS % 1.5 % (0.0-5.0); HEMATOCRIT. 37.5 % (36.0-48.0); HEMOGLOBIN. 12.5 g/dL (12.0-16.0); LYMPHOCYTES % 11.4 % (20.0-50.0); MEAN CORPUSCULAR HEMOGLOBIN 32.9 pg (28.0-32.0); MEAN CORPUSCULAR VOLUME 98.4 fL (81.0-99.0); MEAN PLATELET VOLUME 11.9 fl (7.4-10.4); MONOCYTES % 8.1 % (2.0-8.0); NEUTROPHILS % 77.5 % (40.0-76.0); PLATELET 233 x1000/uL (130-400); RED BLOOD CELL COUNT 3.81 mill/uL (4.2-5.4); RED CELL DISTRIBUTION WIDTH 16.2 % (11.6-14.6)
[2019-08-28 14:05] LABS: INR 1.1; PROTHROMBIN TIME 11.5 sec (9.6-11.0)
[2019-08-28 14:23] LABS: HCG SCREEN NEGATIVE
[2019-08-28 15:29] LABS: CHLORIDE 98 mEq/L (98-107)
[2019-08-28] MEDS ORDERED: FUROSEMIDE 100MG/10ML VIAL IV ONE (16:15)
[2019-08-28] MEDS ORDERED: DEXTROSE 50% WATER 50ML SYRINGE IV ONE (16:15)
[2019-08-28] MEDS ORDERED: CALCIUM GLUCONATE 1,000 MG in DEXT 5% WATER 100 ML IV ONE (16:15)
[2019-08-28] MEDS ORDERED: SODIUM BICARBONATE 8.4% 1 MEQ/ML 50ML SYR IV ONE (16:15)
[2019-08-28] MEDS ORDERED: INSULIN REGULAR (HUMULIN R) 300UNITS/3ML IV ONE (16:15)
[2019-08-28] MEDS ORDERED: ALBUTEROL (0.083%) 2.5MG/3ML NEB HHN SCH (16:30)
[2019-08-28 19:26] LABS: CHLORIDE 99 mEq/L (98-107)
[2019-08-28] MEDS ORDERED: ACETAMINOPHEN 325MG TABLET PO PRN (19:30)
[2019-08-28] MEDS ORDERED: MAGNESIUM/ALUMINUM HYDROXIDE/SIMETHICONE 30ML UDC PO PRN (19:30)
[2019-08-28] MEDS ORDERED: DOCUSATE SODIUM 100MG CAPSULE PO PRN (19:30)
[2019-08-28] MEDS ORDERED: ONDANSETRON HCL 4MG/2ML INJ IV PRN (19:30)
[2019-08-28] MEDS ORDERED: LORAZEPAM 2MG/ML CPJ IV PRN (19:30)
[2019-08-28] MEDS ORDERED: DIPHENHYDRAMINE 50MG/ML VIAL IV PRN (19:30)
[2019-08-28] MEDS ORDERED: IPRATROPIUM/ALBUTEROL 0.5-3(2.5)MG/3ML NEB NEB PRN (19:30)
[2019-08-28] MEDS ORDERED: GUAIFENESIN 200MG/10ML SUGAR FREE UDC PO PRN (19:30)
[2019-08-28] MEDS ORDERED: NA PHOS,M-B/NA PHOS,DI-BA ENEMA 118ML PR PRN (21:00)
[2019-08-28] MEDS ORDERED: SODIUM POLYSTYRENE SULFONATE 15 G/60 ML BOT PO NR (21:45)
[2019-08-28] MEDS ORDERED: DEXTROSE 50% WATER 50ML SYRINGE IV PRN (22:36)
[2019-08-28] MEDS: MORPHINE SULFATE 2 MG/ML CPJ (NOT FOR IM USE) IV PRN (23:20)
[2019-08-28 23:59] VITALS: BP 186/94
[2019-08-29] VITALS: BP 195/102
[2019-08-29] MEDS: HYDRALAZINE 20MG/ML VIAL IV PRN ×2 (01:34→15:23)
[2019-08-29] MEDS: MORPHINE SULFATE 2 MG/ML CPJ (NOT FOR IM USE) IV PRN (03:34)
[2019-08-29 04:00] VITALS: BP 144/85
[2019-08-29] MEDS: BLOOD SUGAR DIAGNOSTIC STRIP TEST SCH ×4 (06:27→21:00)
[2019-08-29] MEDS: SODIUM CHLORIDE 0.9% INJ 3ML FLUSH IVF SCH ×3 (06:28→22:00)
[2019-08-29 07:23] LABS: BASOPHILS % 1.3 % (0.0-2.0); EOSINOPHILS % 1.3 % (0.0-5.0); HEMATOCRIT. 34.4 % (36.0-48.0); HEMOGLOBIN. 11.7 g/dL (12.0-16.0); LYMPHOCYTES % 12.7 % (20.0-50.0); MEAN CORPUSCULAR HEMOGLOBIN 33.5 pg (28.0-32.0); MEAN CORPUSCULAR VOLUME 98.3 fL (81.0-99.0); MONOCYTES % 9.4 % (2.0-8.0); NEUTROPHILS % 75.3 % (40.0-76.0); PLATELET 150 x1000/uL (130-400); RED CELL DISTRIBUTION WIDTH 15.8 % (11.6-14.6)
[2019-08-29 07:32] LABS: CHLORIDE 104 mEq/L (98-107)
[2019-08-29 07:36] VITALS: BP 168/84
[2019-08-29 07:45] LABS: PHOSPHORUS 7.5 mg/dL (2.5-4.9)
[2019-08-29 07:46] LABS: LDL CHOLESTEROL 52 mg/dL (5-100)
[2019-08-29 07:47] LABS: CREATINE KINASE 195 IU/L (26-192); HDL CHOLESTEROL 58 mg/dL (40-59)
[2019-08-29 07:48] LABS: CREATINE KINASE MB FRACTION 15.9 ng/mL (0.5-3.6); T4 FREE 1.06 ng/dL (0.76-1.46)
[2019-08-29] MEDS: ENOXAPARIN 30MG/0.3ML SYR SUBCUT SCH (09:02)
[2019-08-29] MEDS: INSULIN LISPRO 100 UNITS/ML SUBCUT SCH ×4 (09:05→21:00)
[2019-08-29] MEDS: HYDROCODONE/ACETAMINOPHEN 10/325MG TABLET PO PRN ×2 (10:37→23:07)
[2019-08-29 12:00] VITALS: BP 178/87
[2019-08-29] MEDS: CLONIDINE 0.1MG TABLET PO PRN ×2 (13:16→23:08)
[2019-08-29 16:00] VITALS: BP 153/73
[2019-08-30] VITALS: BP 177/80
[2019-08-30 06:00] VITALS: BP 178/84
[2019-08-30] MEDS: BLOOD SUGAR DIAGNOSTIC STRIP TEST SCH ×2 (06:21→12:36)
[2019-08-30] MEDS: SODIUM CHLORIDE 0.9% INJ 3ML FLUSH IVF SCH ×2 (06:21→13:04)
[2019-08-30 06:53] LABS: BASOPHILS % 1.4 % (0.0-2.0); EOSINOPHILS % 1.7 % (0.0-5.0); HEMATOCRIT. 35.2 % (36.0-48.0); HEMOGLOBIN. 11.8 g/dL (12.0-16.0); LYMPHOCYTES % 15.7 % (20.0-50.0); MEAN CORPUSCULAR HEMOGLOBIN 32.8 pg (28.0-32.0); MEAN CORPUSCULAR VOLUME 97.9 fL (81.0-99.0); MEAN PLATELET VOLUME 11.1 fl (7.4-10.4); MONOCYTES % 9.9 % (2.0-8.0); NEUTROPHILS % 71.3 % (40.0-76.0); PLATELET 153 x1000/uL (130-400); RED BLOOD CELL COUNT 3.59 mill/uL (4.2-5.4)
[2019-08-30] MEDS: INSULIN LISPRO 100 UNITS/ML SUBCUT SCH ×2 (07:50→12:41)
[2019-08-30 08:00] VITALS: BP 181/88
[2019-08-30] MEDS: CLONIDINE 0.1MG TABLET PO PRN (08:38)
[2019-08-30] MEDS: ENOXAPARIN 30MG/0.3ML SYR SUBCUT SCH (08:47)
[2019-08-30 12:00] VITALS: BP 181/88
[2019-08-30] MEDS: HYDRALAZINE 20MG/ML VIAL IV PRN (13:03)
[2019-08-30 15:02] VITALS: BP 145/60
== END 2019-08-30 15:45 | disposition home or self-care (01) | DRG 425 ==
LOC: ER 11:38 → 6WST 16:23 → EDBEDREQ 16:57 → ENRESERV 18:49 → 6WST 08-29 01:14
PROVIDERS: ADMIT Internal Medicine; ATTEND Internal Medicine
PROC: 5A1D70Z Performance of Urinary Filtration, Intermittent, Less than 6 Hours Per Day (ICD-10-PCS; 2019-08-28)
PROC: 5A1D70Z Performance of Urinary Filtration, Intermittent, Less than 6 Hours Per Day (ICD-10-PCS; principal; 2019-08-29)
DX: E87.70 Fluid overload, unspecified (principal); J96.00 Acute respiratory failure, unspecified whether with hypoxia or hypercapnia; I13.2 Hypertensive heart and chronic kidney disease with heart failure and with stage 5 chronic kidney disease, or end stage renal disease; E11.22 Type 2 diabetes mellitus with diabetic chronic kidney disease; R18.8 Other ascites; N18.6 End stage renal disease; E44.1 Mild protein-calorie malnutrition; E87.5 Hyperkalemia; E11.319 Type 2 diabetes mellitus with unspecified diabetic retinopathy without macular edema; K80.20 Calculus of gallbladder without cholecystitis without obstruction; E87.1 Hypo-osmolality and hyponatremia; B19.20 Unspecified viral hepatitis C without hepatic coma; I25.10 Atherosclerotic heart disease of native coronary artery without angina pectoris; I50.9 Heart failure, unspecified; D64.9 Anemia, unspecified; F17.200 Nicotine dependence, unspecified, uncomplicated; Z91.15 Patient's noncompliance with renal dialysis; Z99.2 Dependence on renal dialysis; Z98.891 History of uterine scar from previous surgery; Z88.0 Allergy status to penicillin; Z79.2 Long term (current) use of antibiotics; Z79.899 Other long term (current) drug therapy; Z68.33 Body mass index [BMI] 33.0-33.9, adult
CPT/HCPCS: 36415; 74176; 80048; 80053; 80061; 82550; 82553; 82962; 83735; 84100; 84439; 84443; 84484; 84703; 85025; 93005; 93970; 96365; 99285; J0360; J0610; J1650; J1815; J1940; J2270; J2405; J3490; J7060

== ENCOUNTER 2019-09-24 08:03 | Emergency (ER) | payer OTHER ==
[~2019-09-24] VITALS: Ht 154.9 cm; Wt 95.0 kg
[2019-09-24] MEDS ORDERED: HYDRALAZINE 20MG/ML VIAL IV ONE (09:15)
[2019-09-24 09:33] LABS: CHLORIDE 101 mEq/L (98-107)
[2019-09-24 09:34] LABS: BASOPHILS % 1.2 % (0.0-2.0); EOSINOPHILS % 1.7 % (0.0-5.0); HEMOGLOBIN. 10.9 g/dL (12.0-16.0); LYMPHOCYTES % 12.9 % (20.0-50.0); MEAN CORPUSCULAR HEMOGLOBIN 33.4 pg (28.0-32.0); MEAN CORPUSCULAR VOLUME 97.6 fL (81.0-99.0); MEAN PLATELET VOLUME 11.1 fl (7.4-10.4); MONOCYTES % 10.3 % (2.0-8.0); NEUTROPHILS % 73.9 % (40.0-76.0); PLATELET 131 x1000/uL (130-400); RED BLOOD CELL COUNT 3.27 mill/uL (4.2-5.4); RED CELL DISTRIBUTION WIDTH 14.5 % (11.6-14.6)
[2019-09-24 14:28] VITALS: BP 136/102
== END 2019-09-24 15:59 | disposition left against medical advice (07) ==
LOC: ER 08:03
DX: E87.70 Fluid overload, unspecified (principal); I12.0 Hypertensive chronic kidney disease with stage 5 chronic kidney disease or end stage renal disease; E11.22 Type 2 diabetes mellitus with diabetic chronic kidney disease; N18.6 End stage renal disease; R06.02 Shortness of breath; R79.89 Other specified abnormal findings of blood chemistry; Z99.2 Dependence on renal dialysis; Z98.890 Other specified postprocedural states; Z93.0 Tracheostomy status; Z88.0 Allergy status to penicillin; Z79.899 Other long term (current) drug therapy
CPT/HCPCS: 36415; 71045; 80053; 83880; 84484; 85025; 93005; 96374; 99285; J0360

== ENCOUNTER 2019-12-11 12:43 | Inpatient (IN) | payer MEDICAID, OTHER ==
[~2019-12-11] VITALS: Ht 154.9 cm; Wt 84.4 kg
[2019-12-11 15:11] LABS: HEMATOCRIT. 26.2 % (36.0-48.0); HEMOGLOBIN. 8.8 g/dL (12.0-16.0); MEAN CORPUSCULAR HEMOGLOBIN 32.9 pg (28.0-32.0); MEAN CORPUSCULAR VOLUME 97.3 fL (81.0-99.0); MEAN PLATELET VOLUME 9.8 fl (7.4-10.4); PLATELET 409 x1000/uL (130-400); RED BLOOD CELL COUNT 2.69 mill/uL (4.2-5.4); RED CELL DISTRIBUTION WIDTH 17.6 % (11.6-14.6)
[2019-12-11 15:17] LABS: CHLORIDE 98 mEq/L (98-107)
[2019-12-11 15:27] LABS: BG BASE EXCESS -5.9 mmol/L (-2.0-2.0); BG CARBOXYHEMOGLOBIN 3.3 % (0.5-1.5); BG DEOXYHEMOGLOBIN 4.8 % (0.0-5.0); BG FRACTION INSPIRED OXYGEN 21; BG HCO3 ACT 18.6 mmol/L (22.0-26.0); BG METHEMOGLOBIN 0.2 % (0.0-1.5); BG OXYHEMOGLOBIN 91.7 % (94.0-97.0); BG PCO2 32.7 mmHg (35.0-45.0); BG PH 7.372 (7.350-7.450); BG SAMPLE SITE RIGHT BRACHIAL; BG TOTAL HEMOGLOBIN 9.4 g/dL (12.0-18.0); BG VENT MODE ROOM AIR
[2019-12-11 15:28] LABS: PHOSPHORUS 7.3 mg/dL (2.5-4.9)
[2019-12-11 15:44] LABS: HCG SCREEN NEGATIVE
[2019-12-11] MEDS ORDERED: HYDROCODONE/ACETAMINOPHEN 5/325MG TABLET PO ONE ×2 (16:15→20:15)
[2019-12-11 16:16] LABS: PLATELET ESTIMATE INCREASED
[2019-12-11] MEDS ORDERED: DEXTROSE 50% WATER 50ML SYRINGE IV ONE (18:00)
[2019-12-11] MEDS ORDERED: INSULIN REGULAR (HUMULIN R) 300UNITS/3ML IV ONE (18:00)
[2019-12-12] MEDS: HYDROCODONE/ACETAMINOPHEN 5/325MG TABLET PO PRN ×2 (05:07→10:58)
[2019-12-12] MEDS ORDERED: CEFEPIME 1,000 MG in DEXTROSE 5% WATER 50 ML IV SCH (09:30)
[2019-12-12] MEDS ORDERED: DEXTROSE 50% WATER 50ML SYRINGE IV PRN (09:30)
[2019-12-12] MEDS ORDERED: ONDANSETRON HCL 4MG/2ML INJ IV PRN (09:30)
[2019-12-12] MEDS ORDERED: ACETAMINOPHEN 325MG TABLET PO PRN (09:30)
[2019-12-12 10:06] VITALS: BP 135/63
[2019-12-12 10:30] VITALS: BP 135/63
[2019-12-12] MEDS: CEFEPIME 1,000 MG in DEXTROSE 5% WATER 50 ML IV SCH (11:00)
[2019-12-12 11:56] VITALS: BP 120/72
[2019-12-12] MEDS ORDERED: VANCOMYCIN 1500MG in DEXTROSE 5% WATER 250ML IV SCH (12:00)
[2019-12-12] MEDS: MORPHINE SULFATE 4 MG/ML CPJ (NOT FOR IM USE) IV PRN ×2 (12:07→21:34)
[2019-12-12] MEDS: BLOOD SUGAR DIAGNOSTIC STRIP TEST SCH ×3 (12:41→21:35)
[2019-12-12] MEDS: INSULIN LISPRO 100 UNITS/ML SUBCUT SCH ×3 (12:50→21:00)
[2019-12-12] MEDS: ENOXAPARIN 30MG/0.3ML SYR SUBCUT SCH (14:00)
[2019-12-12 16:27] VITALS: BP 149/75
[2019-12-12 20:56] VITALS: BP 171/85
[2019-12-12] MEDS ORDERED: CLONIDINE 0.1MG TABLET PO PRN (21:00)
[2019-12-12] MEDS: AMLODIPINE 10MG TABLET PO SCH (21:33)
[2019-12-13 00:16] VITALS: BP 149/77
[2019-12-13] MEDS: HYDROCODONE/ACETAMINOPHEN 5/325MG TABLET PO PRN ×2 (00:50→18:04)
[2019-12-13 04:00] VITALS: BP 137/72
[2019-12-13] MEDS: MORPHINE SULFATE 4 MG/ML CPJ (NOT FOR IM USE) IV PRN ×3 (06:06→22:09)
[2019-12-13 07:08] LABS: HEMATOCRIT. 27.1 % (36.0-48.0); MEAN CORPUSCULAR HEMOGLOBIN 32.8 pg (28.0-32.0); MEAN CORPUSCULAR VOLUME 98.2 fL (81.0-99.0); MEAN PLATELET VOLUME 9.7 fl (7.4-10.4); PLATELET 404 x1000/uL (130-400); RED BLOOD CELL COUNT 2.76 mill/uL (4.2-5.4); RED CELL DISTRIBUTION WIDTH 17.6 % (11.6-14.6)
[2019-12-13] MEDS: BLOOD SUGAR DIAGNOSTIC STRIP TEST SCH ×4 (07:29→20:28)
[2019-12-13] MEDS: INSULIN LISPRO 100 UNITS/ML SUBCUT SCH ×4 (07:30→20:29)
[2019-12-13 08:00] VITALS: BP 121/54
[2019-12-13] MEDS: AMLODIPINE 10MG TABLET PO SCH (09:18)
[2019-12-13] MEDS: CEFEPIME 1,000 MG in DEXTROSE 5% WATER 50 ML IV SCH (10:45)
[2019-12-13 12:00] VITALS: BP 128/66
[2019-12-13 12:45] LABS: PLATELET ESTIMATE NORMAL
[2019-12-13] MEDS: ENOXAPARIN 30MG/0.3ML SYR SUBCUT SCH (14:38)
[2019-12-13 16:00] VITALS: BP 130/88
[2019-12-13 20:52] VITALS: BP 126/66
[2019-12-14 00:49] VITALS: BP 119/61
[2019-12-14] MEDS: HYDROCODONE/ACETAMINOPHEN 5/325MG TABLET PO PRN ×2 (03:16→18:05)
[2019-12-14 04:36] VITALS: BP 121/63
[2019-12-14] MEDS: BLOOD SUGAR DIAGNOSTIC STRIP TEST SCH ×4 (07:20→20:22)
[2019-12-14] MEDS: INSULIN LISPRO 100 UNITS/ML SUBCUT SCH ×4 (07:50→20:23)
[2019-12-14 08:00] VITALS: BP 156/70
[2019-12-14 09:38] LABS: HEMATOCRIT. 26.3 % (36.0-48.0); HEMOGLOBIN. 8.7 g/dL (12.0-16.0); MEAN CORPUSCULAR HEMOGLOBIN 32.1 pg (28.0-32.0); MEAN CORPUSCULAR VOLUME 96.6 fL (81.0-99.0); MEAN PLATELET VOLUME 9.9 fl (7.4-10.4); PLATELET 426 x1000/uL (130-400); RED BLOOD CELL COUNT 2.72 mill/uL (4.2-5.4); RED CELL DISTRIBUTION WIDTH 17.4 % (11.6-14.6)
[2019-12-14] MEDS: MORPHINE SULFATE 4 MG/ML CPJ (NOT FOR IM USE) IV PRN ×2 (09:47→09:56)
[2019-12-14] MEDS: AMLODIPINE 10MG TABLET PO SCH (09:59)
[2019-12-14] MEDS: CEFEPIME 1,000 MG in DEXTROSE 5% WATER 50 ML IV SCH (11:54)
[2019-12-14 12:00] VITALS: BP 140/80
[2019-12-14 12:00] LABS: PLATELET ESTIMATE INCREASED
[2019-12-14] MEDS: METRONIDAZOLE 500 MG PREMIX 100 ML IV SCH (15:00)
[2019-12-14] MEDS ORDERED: VANCOMYCIN 1 G PREMIX 200 ML IV SCH (18:00)
[2019-12-14] MEDS: ENOXAPARIN 30MG/0.3ML SYR SUBCUT SCH (18:03)
[2019-12-14 20:00] VITALS: BP 142/77
[2019-12-15] VITALS: BP 142/73
[2019-12-15] MEDS: MORPHINE SULFATE 4 MG/ML CPJ (NOT FOR IM USE) IV PRN ×3 (00:04→17:21)
[2019-12-15] MEDS: HYDROCODONE/ACETAMINOPHEN 5/325MG TABLET PO PRN ×3 (03:35→23:35)
[2019-12-15] MEDS: METRONIDAZOLE 500 MG PREMIX 100 ML IV SCH ×2 (03:36→15:00)
[2019-12-15 04:00] VITALS: BP 123/64
[2019-12-15] MEDS: BLOOD SUGAR DIAGNOSTIC STRIP TEST SCH ×4 (05:58→21:42)
[2019-12-15] MEDS: INSULIN LISPRO 100 UNITS/ML SUBCUT SCH ×4 (05:59→21:00)
[2019-12-15 07:38] LABS: HEMATOCRIT. 24.6 % (36.0-48.0); HEMOGLOBIN. 8.2 g/dL (12.0-16.0); MEAN CORPUSCULAR HEMOGLOBIN 32.5 pg (28.0-32.0); MEAN CORPUSCULAR VOLUME 97.3 fL (81.0-99.0); MEAN PLATELET VOLUME 10.1 fl (7.4-10.4); PLATELET 419 x1000/uL (130-400); RED BLOOD CELL COUNT 2.53 mill/uL (4.2-5.4); RED CELL DISTRIBUTION WIDTH 17.3 % (11.6-14.6)
[2019-12-15] MEDS: AMLODIPINE 10MG TABLET PO SCH (11:00)
[2019-12-15] MEDS: CEFEPIME 1,000 MG in DEXTROSE 5% WATER 50 ML IV SCH (11:00)
[2019-12-15 12:15] LABS: PLATELET ESTIMATE INCREASED
[2019-12-15] MEDS: ENOXAPARIN 30MG/0.3ML SYR SUBCUT SCH (14:20)
[2019-12-15 20:00] VITALS: BP 95/71
[2019-12-16] VITALS: BP 99/75
[2019-12-16] MEDS: METRONIDAZOLE 500 MG PREMIX 100 ML IV SCH ×2 (03:00→14:39)
[2019-12-16 04:00] VITALS: BP 141/74
[2019-12-16] MEDS ORDERED: HEPARIN SODIUM 1,000 UNIT/1ML VIAL IV ONE (05:00)
[2019-12-16 05:54] LABS: HEMATOCRIT. 25.8 % (36.0-48.0); HEMOGLOBIN. 8.6 g/dL (12.0-16.0); MEAN CORPUSCULAR HEMOGLOBIN 32.2 pg (28.0-32.0); MEAN CORPUSCULAR VOLUME 96.7 fL (81.0-99.0); MEAN PLATELET VOLUME 9.9 fl (7.4-10.4); PLATELET 448 x1000/uL (130-400); RED BLOOD CELL COUNT 2.67 mill/uL (4.2-5.4); RED CELL DISTRIBUTION WIDTH 17.1 % (11.6-14.6)
[2019-12-16] MEDS: BLOOD SUGAR DIAGNOSTIC STRIP TEST SCH ×4 (06:33→20:35)
[2019-12-16] MEDS: INSULIN LISPRO 100 UNITS/ML SUBCUT SCH ×4 (06:33→20:48)
[2019-12-16 08:00] VITALS: BP 141/70
[2019-12-16] MEDS: AMLODIPINE 10MG TABLET PO SCH (08:17)
[2019-12-16] MEDS: MORPHINE SULFATE 4 MG/ML CPJ (NOT FOR IM USE) IV PRN (08:18)
[2019-12-16 09:14] LABS: PARTIAL THROMBOPLASTIN TIME 30.8 sec (23.4-31.0)
[2019-12-16 09:58] LABS: INR 1.1; PROTHROMBIN TIME 11.9 sec (9.6-11.0)
[2019-12-16] MEDS: CEFEPIME 1,000 MG in DEXTROSE 5% WATER 50 ML IV SCH (10:46)
[2019-12-16 12:12] VITALS: BP 130/71
[2019-12-16] MEDS: ENOXAPARIN 30MG/0.3ML SYR SUBCUT SCH (14:40)
[2019-12-16 15:00] LABS: PLATELET ESTIMATE SLIGHTLY INCREASED
[2019-12-16] MEDS: HYDROCODONE/ACETAMINOPHEN 5/325MG TABLET PO PRN (15:54)
[2019-12-16] MEDS ORDERED: VANCOMYCIN 1 G PREMIX 200 ML IV NR (16:00)
[2019-12-16 16:02] VITALS: BP 124/70
[2019-12-16 20:41] VITALS: BP 122/63
[2019-12-17 00:05] VITALS: BP 140/73
[2019-12-17] MEDS: HYDROCODONE/ACETAMINOPHEN 5/325MG TABLET PO PRN ×3 (00:44→21:45)
[2019-12-17] MEDS: METRONIDAZOLE 500 MG PREMIX 100 ML IV SCH ×2 (03:18→14:15)
[2019-12-17 04:00] VITALS: BP 137/73
[2019-12-17] MEDS: MORPHINE SULFATE 4 MG/ML CPJ (NOT FOR IM USE) IV PRN ×3 (05:08→16:34)
[2019-12-17] MEDS: BLOOD SUGAR DIAGNOSTIC STRIP TEST SCH ×4 (05:34→22:00)
[2019-12-17] MEDS: INSULIN LISPRO 100 UNITS/ML SUBCUT SCH ×4 (05:50→22:00)
[2019-12-17 08:10] VITALS: BP 125/71
[2019-12-17] MEDS: AMLODIPINE 10MG TABLET PO SCH (08:58)
[2019-12-17] MEDS: CEFEPIME 1,000 MG in DEXTROSE 5% WATER 50 ML IV SCH (10:55)
[2019-12-17] MEDS: ENOXAPARIN 30MG/0.3ML SYR SUBCUT SCH (14:14)
[2019-12-17 20:23] VITALS: BP 122/61
[2019-12-18] MEDS: MORPHINE SULFATE 4 MG/ML CPJ (NOT FOR IM USE) IV PRN ×3 (00:07→18:01)
[2019-12-18 00:50] VITALS: BP 125/59
[2019-12-18 04:00] VITALS: BP 120/57
[2019-12-18] MEDS: HYDROCODONE/ACETAMINOPHEN 5/325MG TABLET PO PRN ×2 (04:09→20:29)
[2019-12-18] MEDS: METRONIDAZOLE 500 MG PREMIX 100 ML IV SCH ×2 (04:36→14:25)
[2019-12-18] MEDS: BLOOD SUGAR DIAGNOSTIC STRIP TEST SCH ×4 (07:20→20:38)
[2019-12-18] MEDS: INSULIN LISPRO 100 UNITS/ML SUBCUT SCH ×4 (07:50→20:38)
[2019-12-18 08:00] VITALS: BP 126/72
[2019-12-18] MEDS: AMLODIPINE 10MG TABLET PO SCH (09:00)
[2019-12-18 09:57] LABS: HEMATOCRIT. 25.3 % (36.0-48.0); HEMOGLOBIN. 8.6 g/dL (12.0-16.0); MEAN CORPUSCULAR HEMOGLOBIN 32.5 pg (28.0-32.0); MEAN CORPUSCULAR VOLUME 95.9 fL (81.0-99.0); MEAN PLATELET VOLUME 9.9 fl (7.4-10.4); PLATELET 418 x1000/uL (130-400); RED BLOOD CELL COUNT 2.64 mill/uL (4.2-5.4); RED CELL DISTRIBUTION WIDTH 17.2 % (11.6-14.6)
[2019-12-18 12:00] VITALS: BP 129/62
[2019-12-18 13:28] LABS: PLATELET ESTIMATE SLIGHTLY INCREASED
[2019-12-18] MEDS ORDERED: SODIUM POLYSTYRENE SULFONATE 15 G/60 ML BOT PO SCH (13:30)
[2019-12-18] MEDS ORDERED: SODIUM BICARBONATE 8.4% 1 MEQ/ML 50ML SYR IV SCH (13:30)
[2019-12-18] MEDS ORDERED: DEXTROSE 50% WATER 50ML SYRINGE IV SCH (14:00)
[2019-12-18] MEDS ORDERED: INSULIN REGULAR (HUMULIN R) UD 100 UNITS/ML SYR IV SCH (14:00)
[2019-12-18] MEDS: ENOXAPARIN 30MG/0.3ML SYR SUBCUT SCH (14:24)
[2019-12-18 16:00] VITALS: BP 130/76
[2019-12-18 20:00] VITALS: BP 139/68
[2019-12-19] VITALS: BP 140/69
[2019-12-19] MEDS: MORPHINE SULFATE 4 MG/ML CPJ (NOT FOR IM USE) IV PRN ×2 (00:04→05:58)
[2019-12-19] MEDS: HYDROCODONE/ACETAMINOPHEN 5/325MG TABLET PO PRN ×3 (02:30→14:40)
[2019-12-19] MEDS: METRONIDAZOLE 500 MG PREMIX 100 ML IV SCH ×2 (02:30→15:00)
[2019-12-19 04:00] VITALS: BP 146/73
[2019-12-19 07:06] LABS: BASOPHILS % 0.3 % (0.0-2.0); EOSINOPHILS % 1.5 % (0.0-5.0); HEMATOCRIT. 24.7 % (36.0-48.0); HEMOGLOBIN. 8.1 g/dL (12.0-16.0); LYMPHOCYTES % 7.3 % (20.0-50.0); MEAN CORPUSCULAR HEMOGLOBIN 31.3 pg (28.0-32.0); MEAN CORPUSCULAR VOLUME 95.6 fL (81.0-99.0); MEAN PLATELET VOLUME 10.2 fl (7.4-10.4); MONOCYTES % 6.1 % (2.0-8.0); NEUTROPHILS % 84.8 % (40.0-76.0); PLATELET 399 x1000/uL (130-400); RED BLOOD CELL COUNT 2.59 mill/uL (4.2-5.4); RED CELL DISTRIBUTION WIDTH 16.9 % (11.6-14.6)
[2019-12-19] MEDS: INSULIN LISPRO 100 UNITS/ML SUBCUT SCH ×3 (07:31→17:45)
[2019-12-19] MEDS: BLOOD SUGAR DIAGNOSTIC STRIP TEST SCH ×3 (07:31→17:45)
[2019-12-19 08:00] VITALS: BP 129/66
[2019-12-19] MEDS: AMLODIPINE 10MG TABLET PO SCH (08:35)
[2019-12-19] MEDS ORDERED: MORPHINE SULFATE 2 MG/ML CPJ (NOT FOR IM USE) IV ONE (10:30)
[2019-12-19 12:00] VITALS: BP 134/67
[2019-12-19] MEDS ORDERED: MORPHINE SULFATE 4 MG/ML CPJ (NOT FOR IM USE) IV PRN (12:30)
[2019-12-19] MEDS: ENOXAPARIN 30MG/0.3ML SYR SUBCUT SCH (14:34)
[2019-12-19 16:00] VITALS: BP 140/69
[2019-12-19] MEDS ORDERED: AMLO10TA80 MT ×2 (16:16→19:09)
[2019-12-19] MEDS ORDERED: OXYC-515 MT ×2 (16:16→19:08)
[2019-12-19 17:57] VITALS: BP 140/69
== END 2019-12-19 20:00 | disposition home health service (06) | DRG 721 ==
LOC: ER 12:43 → 6WST 17:01 → EDBEDREQTM 17:03 → EDBEDREQ 17:03 → ENRESERV 12-12 07:40
PROVIDERS: ADMIT Internal Medicine; ATTEND Internal Medicine
PROC: 5A1D70Z Performance of Urinary Filtration, Intermittent, Less than 6 Hours Per Day (ICD-10-PCS; 2019-12-11)
PROC: 5A1D70Z Performance of Urinary Filtration, Intermittent, Less than 6 Hours Per Day (ICD-10-PCS; 2019-12-13)
PROC: 5A1D70Z Performance of Urinary Filtration, Intermittent, Less than 6 Hours Per Day (ICD-10-PCS; 2019-12-15)
PROC: 5A1D70Z Performance of Urinary Filtration, Intermittent, Less than 6 Hours Per Day (ICD-10-PCS; 2019-12-18)
PROC: 5A1D70Z Performance of Urinary Filtration, Intermittent, Less than 6 Hours Per Day (ICD-10-PCS; principal; 2019-12-19)
DX: T80.211A Bloodstream infection due to central venous catheter, initial encounter (principal); E43 Unspecified severe protein-calorie malnutrition; I13.2 Hypertensive heart and chronic kidney disease with heart failure and with stage 5 chronic kidney disease, or end stage renal disease; R18.8 Other ascites; A41.9 Sepsis, unspecified organism; Z93.0 Tracheostomy status; E10.22 Type 1 diabetes mellitus with diabetic chronic kidney disease; E10.42 Type 1 diabetes mellitus with diabetic polyneuropathy; N18.6 End stage renal disease; E66.01 Morbid (severe) obesity due to excess calories; E10.319 Type 1 diabetes mellitus with unspecified diabetic retinopathy without macular edema; E87.5 Hyperkalemia; E87.1 Hypo-osmolality and hyponatremia; F17.210 Nicotine dependence, cigarettes, uncomplicated; E10.621 Type 1 diabetes mellitus with foot ulcer; D64.9 Anemia, unspecified; G89.29 Other chronic pain; I50.32 Chronic diastolic (congestive) heart failure; L97.519 Non-pressure chronic ulcer of other part of right foot with unspecified severity; M54.9 Dorsalgia, unspecified; R26.89 Other abnormalities of gait and mobility; R74.0 Nonspecific elevation of levels of transaminase and lactic acid dehydrogenase [LDH]; L97.829 Non-pressure chronic ulcer of other part of left lower leg with unspecified severity; E10.51 Type 1 diabetes mellitus with diabetic peripheral angiopathy without gangrene; Z79.4 Long term (current) use of insulin; Z91.19 Patient's noncompliance with other medical treatment and regimen; Z99.2 Dependence on renal dialysis; Z90.49 Acquired absence of other specified parts of digestive tract; Z91.11 Patient's noncompliance with dietary regimen; Z91.14 Patient's other noncompliance with medication regimen; Z68.35 Body mass index [BMI] 35.0-35.9, adult; Z88.0 Allergy status to penicillin; Z79.2 Long term (current) use of antibiotics; Z98.891 History of uterine scar from previous surgery; Z71.3 Dietary counseling and surveillance; Y92.89 Other specified places as the place of occurrence of the external cause; Z56.0 Unemployment, unspecified; Y84.8 Other medical procedures as the cause of abnormal reaction of the patient, or of later complication, without mention of misadventure at the time of the procedure
CPT/HCPCS: 36415; 36600; 71045; 72192; 73700; 80048; 80053; 80202; 82375; 82805; 82962; 83735; 84100; 84145; 84484; 84703; 85025; 93005; 93923; 93970; 97022; 97161; 99291; J0692; J1644; J1650; J1815; J2270; J3370; J3490; J7060